=== PATIENT | female | born 2000 | race Caucasian/White ===

== ENCOUNTER 2025-01-03 07:03 | Inpatient (IN) | payer OTHER ==
[2025-01-03] MEDS ORDERED: Calcium Carbonate 500 MG Tab.Chew PO PRN (07:23)
[2025-01-03] MEDS ORDERED: Lidocaine 1% 50 ML MDV INJECT PRN (07:23)
[2025-01-03] MEDS ORDERED: Sodium Chloride 0.9% 10 ML Syringe FLUSH PRN (07:23)
[2025-01-03] MEDS ORDERED: Ondansetron 4 MG/2 ML SDV IVPUSH PRN (07:23)
[2025-01-03] MEDS ORDERED: Acetaminophen 325 MG Tab PO PRN (07:23)
[2025-01-03] MEDS ORDERED: Nalbuphine 10 MG/1 ML Vial IVPUSH PRN (07:23)
[2025-01-03] MEDS ORDERED: Oxytocin/0.9 % Sodium Chloride 30 UNIT/500 ML BAG IV SCH (07:30)
[2025-01-03 08:05] LABS: BASOPHILS PERCENT AUTO 0.1 % (0.0-1.0); EOSINOPHILS PERCENT AUTO 0.2 % (0.0-6.0); HEMATOCRIT 33.6 % (37.0-47.0); HEMOGLOBIN 11.5 gm/dl (12.0-16.0); IMMATURE GRAN ABSOLUTE AUTO 0.04 K/mm3 (0.00-0.05); IMMATURE GRAN PERCENT AUTO 0.4 % (0.0-0.4); LYMPHOCYTES ABSOLUTE AUTO 1.5 K/mm3 (1.0-4.8); LYMPHOCYTES PERCENT AUTO 15.8 % (24.0-44.0); MEAN CORPUSCULAR HEMOGLOBIN 31.9 pg (28.0-32.0); MEAN CORPUSCULAR HGB CONC 34.2 g/dl (32.0-36.0); MEAN CORPUSCULAR VOLUME 93.3 fl (83.0-99.0); MEAN PLATELET VOLUME 10.8 fl (9.4-12.3); MONOCYTES ABSOLUTE AUTO 0.6 K/mm3 (0.0-0.8); MONOCYTES PERCENT AUTO 6.2 % (0.0-8.0); NEUTROPHILS ABSOLUTE AUTO 7.3 K/mm3 (1.8-7.7); NEUTROPHILS PERCENT AUTO 77.3 % (41.0-71.0); PLATELET COUNT,PLT 213 K/mm3 (150-400); WHITE BLOOD CELL COUNT,WBC 9.47 K/mm3 (3.9-11.3)
[2025-01-03] MEDS: Misoprostol 25 MCG (1/4 of 100 MCG) Tab VAG ONE (08:08)
[2025-01-03] MEDS: Sodium Chloride 0.9% 10 ML Syringe FLUSH SCH (10:57)
[2025-01-03] MEDS: Lactated Ringers 1,000 ML IV SCH (12:31)
[2025-01-03] MEDS ORDERED: diphenhydrAMINE 50 MG/ML SDV IVPUSH PRN (12:41)
[2025-01-03] MEDS ORDERED: ePHEDrine 50 MG/ML SDV IVPUSH PRN (12:41)
[2025-01-03] MEDS: Oxytocin/0.9 % Sodium Chloride 30 UNIT/500 ML BAG IV SCH (12:42)
[2025-01-03] MEDS: Bupivacaine/fentaNYL/NS 100 ML Bag EPIDUR PRN (18:45)
[2025-01-04] MEDS ORDERED: Acetaminophen 325 MG Tab PO PRN (01:55)
[2025-01-04] MEDS: Ibuprofen 600 MG Tab PO SCH (04:58)
[2025-01-04] MEDS: Witch Hazel Medicated Pads 40/Jar TOP PRN (05:00)
[2025-01-04] MEDS: Benzocaine/Menthol 20%-0.5% Spray 78 GM Cannister TOP PRN (05:01)
[2025-01-04] MEDS: Docusate Sodium 100 MG Cap PO PRN (10:02)
[2025-01-05 10:45] VITALS: BP 134/77; PULSE 112
== END 2025-01-05 10:15 | disposition home or self-care (01) | DRG 807 ==
LOC: JD.OB 07:03 → OBSVTOIN 12:16 → JD.OB 01-04 00:16
PROVIDERS: ADMIT Family Medicine; ATTEND Family Medicine
PROC: 10E0XZZ Delivery of Products of Conception, External Approach (ICD-10-PCS; principal; 2025-01-03)
PROC: 0KQM0ZZ Repair Perineum Muscle, Open Approach (ICD-10-PCS; 2025-01-03)
PROC: 10907ZC Drainage of Amniotic Fluid, Therapeutic from Products of Conception, Via Natural or Artificial Opening (ICD-10-PCS; 2025-01-03)
PROC: 3E033VJ Introduction of Other Hormone into Peripheral Vein, Percutaneous Approach (ICD-10-PCS; 2025-01-03)
PROC: 3E0R3BZ Introduction of Anesthetic Agent into Spinal Canal, Percutaneous Approach (ICD-10-PCS; 2025-01-03)
PROC: 00HU33Z Insertion of Infusion Device into Spinal Canal, Percutaneous Approach (ICD-10-PCS; 2025-01-03)
DX: O70.1 Second degree perineal laceration during delivery (principal); Z37.0 Single live birth; O69.81X0 Labor and delivery complicated by cord around neck, without compression, not applicable or unspecified; Z3A.39 39 weeks gestation of pregnancy
CPT/HCPCS: 36415; 51702; 59025; 59409; 85025; 86592; A9270-GY; J3490; J7120; J7999

== ENCOUNTER 2025-02-17 03:12 | Emergency (ER) | payer OTHER ==
[2025-02-17 03:25] VITALS: BP 129/79; PULSE 65
[2025-02-17 03:54] LABS: BASOPHILS PERCENT AUTO 0.4 % (0.0-1.0); EOSINOPHILS ABSOLUTE AUTO 0.1 K/mm3 (0.0-0.4); EOSINOPHILS PERCENT AUTO 2.1 % (0.0-6.0); HEMATOCRIT 36.5 % (37.0-47.0); IMMATURE GRAN ABSOLUTE AUTO 0.01 K/mm3 (0.00-0.05); IMMATURE GRAN PERCENT AUTO 0.2 % (0.0-0.4); LYMPHOCYTES ABSOLUTE AUTO 2.1 K/mm3 (1.0-4.8); LYMPHOCYTES PERCENT AUTO 39.5 % (24.0-44.0); MEAN CORPUSCULAR HEMOGLOBIN 28.2 pg (28.0-32.0); MEAN CORPUSCULAR HGB CONC 32.9 g/dl (32.0-36.0); MEAN CORPUSCULAR VOLUME 85.7 fl (83.0-99.0); MEAN PLATELET VOLUME 10.5 fl (9.4-12.3); MONOCYTES ABSOLUTE AUTO 0.4 K/mm3 (0.0-0.8); MONOCYTES PERCENT AUTO 8.3 % (0.0-8.0); NEUTROPHILS ABSOLUTE AUTO 2.6 K/mm3 (1.8-7.7); NEUTROPHILS PERCENT AUTO 49.5 % (41.0-71.0); PLATELET COUNT,PLT 283 K/mm3 (150-400); RED BLOOD CELL COUNT 4.26 M/mm3 (4.10-5.30); WHITE BLOOD CELL COUNT,WBC 5.29 K/mm3 (3.9-11.3)
[2025-02-17 04:04] LABS: A/G RATIO 0.9 (1-2); ALBUMIN 3.4 g/dl (3.4-5.0); BILIRUBIN TOTAL 0.2 mg/dL (0.2-1.0); BUN/CREATININE RATIO 15.6 (14-18); CREATININE 0.9 mg/dL (0.55-1.02); EST CRCL DRUG DOSING (CG) 93.73 mL/min; PROTEIN TOTAL,TP 7.4 g/dl (6.4-8.2)
[2025-02-17] MEDS: Sodium Chloride 0.9% 1,000 ML IV ONE (04:18)
[2025-02-17] MEDS: Ketorolac 15 MG/ML SDV IVPUSH ONE (04:21)
[2025-02-17] MEDS ORDERED: Sodium Chloride 0.9% 10 ML Syringe FLUSH PRN (04:29)
[2025-02-17 04:31] LABS: APPEARANCE,URINE CLEAR (Clear); BILIRUBIN,URINE NEGATIVE (Negative); COLOR,URINE LIGHT YELLOW (Yellow); GLUCOSE,URINE NEGATIVE (Negative); KETONES,URINE NEGATIVE (Negative); LEUKOCYTE ESTERASE,URINE 1+ (Negative); NITRITE,URINE NEGATIVE (Negative); OCCULT BLOOD,URINE NEGATIVE (Negative); PROTEIN,URINE NEGATIVE (Negative); UROBILINOGEN,URINE 0.2 (0.2-1.0)
[2025-02-17 04:39] LABS: BACTERIA,URINE MODERATE /hpf (FEW); MUCUS,URINE NOT SEEN /hpf (FEW); RBC,URINE 0-5 /hpf (0-5)
[2025-02-17] MEDS: Sodium Chloride 0.9% 10 ML Syringe FLUSH PRN (04:47)
[2025-02-17] MEDS: Iopamidol 612 MG/ML 100 ML Bottle IVPUSH ONE (04:47)
== END 2025-02-17 06:23 | disposition home or self-care (01) ==
LOC: JD.ED 03:12
DX: R10.11 Right upper quadrant pain (principal); R82.90 Unspecified abnormal findings in urine; Z88.0 Allergy status to penicillin; Z88.2 Allergy status to sulfonamides; Z91.09 Other allergy status, other than to drugs and biological substances; Z79.899 Other long term (current) drug therapy
CPT/HCPCS: 36415; 74177; 80053; 81001; 83690; 84703; 85025; 87086; 96361; 96374; 99284; J1885; J7030; Q9967

== ENCOUNTER 2025-03-13 09:13 | Day surgery (SDC) | payer OTHER ==
[2025-03-13] MEDS ORDERED: Sodium Chloride 0.9% 10 ML Syringe FLUSH PRN (09:35)
[2025-03-13] MEDS: Lactated Ringers 1,000 ML IV SCH (09:55)
[2025-03-13] MEDS ORDERED: Propofol 200 MG/20 ML SDV ONE ×3 (09:58→11:19)
[2025-03-13] MEDS ORDERED: fentaNYL 250 MCG/5 ML SDV ONE (09:58)
[2025-03-13] MEDS ORDERED: propofoL 500 MG/50 ML 50 ML ONE (09:58)
[2025-03-13] MEDS ORDERED: Ondansetron 4 MG/2 ML SDV ONE (09:59)
[2025-03-13] MEDS ORDERED: Dexamethasone 4 MG/ML 5 ML MDV ONE (09:59)
[2025-03-13] MEDS ORDERED: diphenhydrAMINE 50 MG/ML SDV ONE (10:16)
[2025-03-13] MEDS ORDERED: Lactated Ringers 1,000 ML ONE (10:18)
[2025-03-13] MEDS ORDERED: Ketamine HCL/NACL, ISO-OSM 50 MG/5 ML Syringe ONE (10:19)
[2025-03-13] MEDS ORDERED: Midazolam 1 MG/ML 2 ML SDV ONE (10:19)
[2025-03-13] MEDS ORDERED: Glycopyrrolate 0.2 MG/ML 2 ML SDV ONE ×2 (10:19→10:32)
[2025-03-13] MEDS ORDERED: Ketorolac 30 MG/ML SDV ONE (10:49)
[2025-03-13] MEDS: EPINEPHrine 1 MG/ML SDV ONE (11:22)
[2025-03-13] MEDS ORDERED: droPERidol 2.5 MG/ML SDV ONE (12:30)
[2025-03-13] MEDS ORDERED: fentaNYL 100 MCG/2 ML SDV IVPUSH PRN (12:42)
[2025-03-13 16:05] VITALS: BP 114/66; PULSE 68
== END 2025-03-13 14:59 | disposition home or self-care (01) ==
LOC: JD.SDS 09:13
PROVIDERS: ATTEND Surgery
DX: K80.10 Calculus of gallbladder with chronic cholecystitis without obstruction (principal); Z88.2 Allergy status to sulfonamides; Z88.1 Allergy status to other antibiotic agents
CPT/HCPCS: 00790; 81025; J0171; J0665; J0690; J1100; J1200; J1596; J1790; J1885; J2003; J2250; J2405; J2704; J3010; J3490; J7120

== ENCOUNTER 2025-03-22 22:58 | Emergency (ER) | payer OTHER ==
[2025-03-22] MEDS ORDERED: Naloxone 0.4 MG/ML SDV IVPUSH PRN (23:19)
[2025-03-22 23:23] LABS: BASOPHILS ABSOLUTE AUTO 0.0 K/mm3 (0.0-0.2); BASOPHILS PERCENT AUTO 0.5 % (0.0-1.0); EOSINOPHILS ABSOLUTE AUTO 0.1 K/mm3 (0.0-0.4); EOSINOPHILS PERCENT AUTO 2.1 % (0.0-6.0); IMMATURE GRAN ABSOLUTE AUTO 0.03 K/mm3 (0.00-0.05); IMMATURE GRAN PERCENT AUTO 0.5 % (0.0-0.4); LYMPHOCYTES ABSOLUTE AUTO 2.2 K/mm3 (1.0-4.8); LYMPHOCYTES PERCENT AUTO 32.8 % (24.0-44.0); MEAN PLATELET VOLUME 10.1 fl (9.4-12.3); MONOCYTES ABSOLUTE AUTO 0.8 K/mm3 (0.0-0.8); MONOCYTES PERCENT AUTO 11.6 % (0.0-8.0); NEUTROPHILS ABSOLUTE AUTO 3.5 K/mm3 (1.8-7.7); NEUTROPHILS PERCENT AUTO 52.5 % (41.0-71.0); NRBC ABSOLUTE 0.00 (0.00-0.02); NRBC PERCENT 0.0 % (0.0-0.2); PLATELET COUNT,PLT 320 K/mm3 (150-400); RED BLOOD CELL COUNT 3.42 M/mm3 (4.10-5.30); WHITE BLOOD CELL COUNT,WBC 6.64 K/mm3 (3.9-11.3)
[2025-03-22] MEDS: Ondansetron 4 MG/2 ML SDV IVPUSH ONE (23:25)
[2025-03-22] MEDS: Iopamidol 612 MG/ML 100 ML Bottle IVPUSH ONE (23:44)
[2025-03-22] MEDS: Sodium Chloride 0.9% 10 ML Syringe FLUSH PRN (23:44)
[2025-03-22 23:47] LABS: A/G RATIO 1.0 (1-2); ALANINE AMINOTRANSFERASE,ALT 45.0 U/L (14-59); BILIRUBIN TOTAL 1.8 mg/dL (0.2-1.0); BLOOD UREA NITROGEN,BUN 22.0 mg/dL (7-18); CARBON DIOXIDE,CO2 25.0 mEq/L (21-32); CHLORIDE,CL 104.0 mEq/L (98-107); CREATININE 0.6 mg/dL (0.55-1.02); EST CRCL DRUG DOSING (CG) 145.85 mL/min; ESTIMATED GFR 128.0 mL/min (>60); GLUCOSE RANDOM 83.0 mg/dL (70-99); PROTEIN TOTAL,TP 7.6 g/dl (6.4-8.2); SODIUM,NA 139.0 mEq/L (136-145)
[2025-03-22 23:48] LABS: LACTIC ACID 0.4 mmol/L (0.4-2.0)
[2025-03-22 23:50] LABS: POTASSIUM,K 3.7 mEq/L (3.5-5.1)
[2025-03-22 23:51] LABS: ASPARTATE AMNIOTRANSFERASE,AST 130.0 U/L (15-37)
[2025-03-23 00:24] LABS: APPEARANCE,URINE SLT CLOUDY (Clear); GLUCOSE,URINE NEGATIVE (Negative); OCCULT BLOOD,URINE 3+ (Negative)
[2025-03-23 00:31] LABS: SQUAMOUS EPITHELIAL CELLS,UR 0-5 /hpf (0-5)
[2025-03-23 00:32] LABS: COARSE GRANULAR CASTS,URINE 0-5 /hpf (0-5)
[2025-03-23 00:43] LABS: BASOPHILS ABSOLUTE AUTO 0.0 K/mm3 (0.0-0.2); BASOPHILS PERCENT AUTO 0.3 % (0.0-1.0); EOSINOPHILS ABSOLUTE AUTO 0.1 K/mm3 (0.0-0.4); EOSINOPHILS PERCENT AUTO 1.0 % (0.0-6.0); IMMATURE GRAN ABSOLUTE AUTO 0.04 K/mm3 (0.00-0.05); IMMATURE GRAN PERCENT AUTO 0.6 % (0.0-0.4); LYMPHOCYTES ABSOLUTE AUTO 1.2 K/mm3 (1.0-4.8); LYMPHOCYTES PERCENT AUTO 16.8 % (24.0-44.0); MEAN PLATELET VOLUME 10.0 fl (9.4-12.3); MONOCYTES ABSOLUTE AUTO 0.6 K/mm3 (0.0-0.8); MONOCYTES PERCENT AUTO 8.9 % (0.0-8.0); NEUTROPHILS ABSOLUTE AUTO 5.0 K/mm3 (1.8-7.7); NEUTROPHILS PERCENT AUTO 72.4 % (41.0-71.0); NRBC ABSOLUTE 0.00 (0.00-0.02); NRBC PERCENT 0.0 % (0.0-0.2); PLATELET COUNT,PLT 278 K/mm3 (150-400); RED BLOOD CELL COUNT 3.23 M/mm3 (4.10-5.30); WHITE BLOOD CELL COUNT,WBC 6.84 K/mm3 (3.9-11.3)
[2025-03-23] MEDS ORDERED: Ondansetron 4 MG Tab.DIS PO PRN (00:52)
[2025-03-23] MEDS: Lactated Ringers 1,000 ML IV SCH (04:06)
[2025-03-23 06:06] LABS: MEAN PLATELET VOLUME 10.0 fl (9.4-12.3); NRBC ABSOLUTE 0.00 (0.00-0.02); NRBC PERCENT 0.0 % (0.0-0.2); PLATELET COUNT,PLT 285 K/mm3 (150-400); RED BLOOD CELL COUNT 3.67 M/mm3 (4.10-5.30); WHITE BLOOD CELL COUNT,WBC 4.86 K/mm3 (3.9-11.3)
[2025-03-23 06:25] LABS: A/G RATIO 0.9 (1-2); ALANINE AMINOTRANSFERASE,ALT 335.0 U/L (14-59); BILIRUBIN TOTAL 4.8 mg/dL (0.2-1.0); BLOOD UREA NITROGEN,BUN 16.0 mg/dL (7-18); CARBON DIOXIDE,CO2 27.0 mEq/L (21-32); CHLORIDE,CL 105.0 mEq/L (98-107); EST CRCL DRUG DOSING (CG) 145.85 mL/min; ESTIMATED GFR 128.0 mL/min (>60); GLUCOSE RANDOM 77.0 mg/dL (70-99); SODIUM,NA 138.0 mEq/L (136-145)
[2025-03-23 06:29] LABS: ASPARTATE AMNIOTRANSFERASE,AST 779.0 U/L (15-37); PROTEIN TOTAL,TP 6.9 g/dl (6.4-8.2)
[2025-03-23 06:30] LABS: CREATININE 0.6 mg/dL (0.55-1.02); POTASSIUM,K 4.0 mEq/L (3.5-5.1)
[2025-03-23] MEDS: diphenhydrAMINE 50 MG/ML SDV IVPUSH ONE (09:13)
[2025-03-23 09:35] VITALS: BP 106/68; PULSE 86
== END 2025-03-23 09:20 | disposition critical access hospital (66) ==
LOC: JD.ED 22:58
DX: K91.840 Postprocedural hemorrhage of a digestive system organ or structure following a digestive system procedure (principal); J45.909 Unspecified asthma, uncomplicated; Z86.16 Personal history of COVID-19; Z88.0 Allergy status to penicillin; Z88.2 Allergy status to sulfonamides; Z91.048 Other nonmedicinal substance allergy status; Z79.899 Other long term (current) drug therapy; Z90.49 Acquired absence of other specified parts of digestive tract
CPT/HCPCS: 36415; 36430; 74177; 76705; 80053; 81001; 82248; 83540; 83605; 83690; 83735; 85025; 85027; 86850; 86900; 86901; 86922; 96361; 96374; 96375; 99285; A9270; J2405; J2543; J7030; J7120; P9016; Q9967; J1171